=== PATIENT | male | born 1945 | race Caucasian/White ===

== ENCOUNTER 2017-11-05 05:45 | Day surgery (SDC) | payer MEDICARE ==
[~2017-11-05] VITALS: Ht 177.8 cm; Wt 83.0 kg
--- NOTE | ~2017-11-05 | OR ---
[facility] [address], [place] [address] Draft DATE OF OPERATION: 11/05/2017 SURGEON: Jaime Fisher MD PREOPERATIVE DIAGNOSIS: Left inguinal hernia. POSTOPERATIVE DIAGNOSIS: Left direct inguinal hernia. PROCEDURE: Left inguinal hernia repair with implantation of Prolene mesh (underlay technique). ANESTHESIA: General endotracheal; Julianne Gutierrez CRNA and local 0.25% Marcaine with epinephrine. INDICATION: This 72-year-old white man is a patient of Dr. Almanza and known to me from the past having undergone Hill repair number of years ago in the mid . He had an episode of severe left lower abdominal pain in June of this year. He is noted to have worsening constipation. He was found to have a small mass, which was reducible. He has had on occasions issues of left inguinal pain and small mass, which is reducible. Clinical examination confirms a left inguinal hernia. Notably, he underwent right inguinal hernia repair by Dr. Mcneill a number of years ago on the right side. There was no evidence of recurrence there. He is admitted at this time to undergo a left inguinal hernia repair. He understands the risks of bleeding, infection, recurrence, and other unforeseen complications. Implantation of mesh has been recommended and he accepts that. FINDINGS: A large direct defect was noted. There was no sign of indirect defect. Cord structures were normal. An ilioinguinal nerve branch was identified and preserved. Repair included implantation of Prolene mesh in the properitoneal space. Preservation of the ilioinguinal nerve was noted and good repair of the floor was accomplished. DESCRIPTION OF PROCEDURE: The patient was brought to the operating room and given a general anesthetic. Preoperative antibiotic Ancef was given. Sequential compression device stockings applied and heparin subcutaneously administered. The abdomen was clipped and prepared PATIENT NAME: TOMMIE TALBOT OPERATIVE REPORT DATE OF : 41 REPORT #: [id number] PHYSICIAN: JAIME FISHER MD PCP: KATELIN ALMANZA MD REPORT IS CONFIDENTIAL AND NOT TO BE RELEASED WITHOUT AUTHORIZATION [facility] [address], [place] [address] Draft with a chlorhexidine solution and draped sterilely. A small incision was made in the left groin cephalad to the suprapubic tubercle. Dissection carried through the subcutaneous tissue with blunt and electrocautery dissection. The external oblique was incised along its fibers and opened and the underlying cord and ilioinguinal nerve identified. The cord was from the nerve with sharp dissection and the cord encircled with a [place] drain. Close inspection of the cord structures showed no sign of indirect hernia. The direct defect of the floor was noted. Attenuated fibers of the fascia of the transversalis were incised with electrocautery and using blunt dissection, the properitoneal fat . The segment of Prolene mesh was cut to an elliptical configuration and secured in an underlay technique using interrupted 2-0 Prolene sutures. A defect was cut in the graft to accommodate the cord structures. The tails of the graft were secured laterally. The special care taken to avoid encumbrance of the ilioinguinal nerve. A 20 mL of 0.25% Marcaine with epinephrine was injected locally. The cord was replaced in the canal as was the ilioinguinal nerve. The external oblique was reapproximated with running 2-0 Vicryl suture. Juan's layer was reapproximated with interrupted 2-0 Vicryl and the skin was closed with running subcuticular 3-0 Vicryl. Steri-Strips were applied. The patient was ultimately extubated and transported to the recovery room in good condition having suffered no complications. Sponge, needle, and instrument counts reported as correct x3. MD SUZIE Fay/MODL /[id number] cc: Katelin Almanza MD Copies: KATELIN ALMANZA MD ~ PATIENT NAME: TOMMIE TALBOT OPERATIVE REPORT DATE OF : 41 REPORT #: [id number] PHYSICIAN: JAIME FISHER MD PCP: KATELIN ALMANZA MD REPORT IS CONFIDENTIAL AND NOT TO BE RELEASED WITHOUT AUTHORIZATION
[~2017-11-05 05:45] MED LIST: ASPIR 8181 MG PO; ASPIR-LOW81 MG PO; FLOMAX0.4 MG PO; METOPROLOL SUCC50 MG PO; PEPCID20 MG PO; PROBIOTIC1 EAC1 PO; SAW PALMETTO80 MG; VITAMIN C500 M1 PO; VITAMIN D-32000 UNI1 PO; VITAMIN D350000 UNIT PO
--- NOTE | 2017-11-05 09:25 | NUR ---
11/05/17 0925 Antonia Cerrato 0960-PATIENT ARRIVED TO PACU ON 6L MASK O2 SAT 97% PATIENT REACTIVE TO VOICE OPENS EYES DROWSY BACK TO SLEEP. RR EVEN. SR. DRESSING TO LEFT GROIN CDI.
[2017-11-05] MEDS ORDERED: MAPAP325 MG PO (09:37)
[2017-11-05] MEDS ORDERED: OXYCODON-ACETA1 EAC2 PO (09:37)
[2017-11-05] MEDS ORDERED: IBUPROFEN600 MG PO (09:37)
--- NOTE | 2017-11-05 10:46 | NUR ---
LE 0950 PT RETURNS FROM PACU, AWAKE AND TALKING WITH STAFF. VITALS STABLE. PT DENIES PAIN OR NAUSEA. WATER GIVEN. AT BEDSIDE. PT DENIES NEEDS AT THIS TIME. CALL LIGHT IN REACH. LE 1035 IN TO CHECK ON PT, PT AWAKE TALKING WITH . DENIES PAIN AND NAUSEA. CRACKERS AND PUDDING GIVEN. NO FURTHER NEEDS AT THIS TIME. CALL LIGHT IN REACH.
--- NOTE | 2017-11-05 13:16 | NUR ---
CONNECTED WITH PT BEFORE SURGERY. HE IS ALERT, ORIENTED AND SUPPORTED BY HIS . THEY BOTH SEEM PREPARED, HAD FEW QUESTIONS AND REQUESTED PRAYER. WILL FOLLOW A NEEDED
== END 2017-11-05 11:25 | disposition home or self-care (01) ==
LOC: DS 05:45
PROVIDERS: Surgery
PROC: 0YU60JZ Supplement Left Inguinal Region with Synthetic Substitute, Open Approach (ICD-10-PCS; principal; 2017-11-05 06:45)
DX: K40.90 Unilateral inguinal hernia, without obstruction or gangrene, not specified as recurrent (principal); I10 Essential (primary) hypertension; K21.9 Gastro-esophageal reflux disease without esophagitis; R39.12 Poor urinary stream; Z79.82 Long term (current) use of aspirin; Z88.8 Allergy status to other drugs, medicaments and biological substances; Z87.891 Personal history of nicotine dependence; Z98.890 Other specified postprocedural states; Z87.442 Personal history of urinary calculi; Z86.010 Personal history of colon polyps; Z79.899 Other long term (current) drug therapy
CPT/HCPCS: C1781; J0330; J0690; J1100; J1644; J1885; J2405; J2550; J2704; J2765; J3010; J7120

== ENCOUNTER 2020-04-18 12:00 | Day surgery (SDC) | payer MEDICARE ==
[~2020-04-18] VITALS: Ht 177.8 cm; Wt 83.6 kg
--- NOTE | ~2020-04-18 | OR ---
[facility] [address] [place], [place] [address] Draft DATE OF OPERATION: 04/18/2020 SURGEON: Jaime Fisher MD PREOPERATIVE DIAGNOSES: Bowel habit changes including diarrhea alternating with constipation, known history of polyps (2009), normal colonoscopy in 2013. POSTOPERATIVE DIAGNOSES: 1. Sigmoid diverticulosis. 2. Polyps x7 (small). 3. Internal hemorrhoids. PROCEDURE: Total colonoscopy to cecum with cold morcellation polypectomy x7. ANESTHESIA: Intravenous sedation, fentanyl 150 mcg and Versed 7 mg. INDICATIONS: This 75-year-old white man is patient of Dr. Almanza and well known to me from the past. He underwent Hill posterior gastropexy by me in 1996. The patient has also undergone colonoscopy in 2009, where he was found to have a dysplastic polyp of the right colon. Repeat colonoscopy in 2013 showed no sign of problem. He has had bowel habit changes including diarrhea, occasionally constipation, but no rectal bleeding and no sign of fecal occult blood. He is here for colonoscopy. He understands the risks of bleeding, infection, and perforation. Special note, the patient notes stress causes the symptoms worsen quite markedly. FINDINGS: The prep was excellent. Complete colonoscopy was undertaken to the cecum without question. He had seven small polyps distributed throughout the colon, mostly on the right side. There were few diverticula and internal hemorrhoids. DESCRIPTION OF PROCEDURE: The patient was brought to the endoscopy suite and placed in lateral decubitus position, given IV sedation to the point of slurred speech and nystagmus with full cardiopulmonary monitoring. Digital rectal examination was normal. PATIENT NAME: TOMMIE TALBOT OPERATIVE REPORT DATE OF : 41 REPORT #: [id number] PHYSICIAN: JAIME FISHER MD PCP: KATELIN ALMANZA MD REPORT IS CONFIDENTIAL AND NOT TO BE RELEASED WITHOUT AUTHORIZATION [facility] [address] [place], [place] [address] Draft Olympus video colonoscope was passed into the rectum and manipulated throughout the colon, ultimately intubating the cecum. The ileocecal valve and appendiceal orifice were normal. A very good prep was noted. The scope was withdrawn to the ascending colon, there was a small adenomatous appearing polyp, this was excised with cold morcellation technique. The scope was withdrawn to the hepatic flexure, where two such small polyps were noted there, both excised with cold morcellation technique and another nearby in the transverse colon also excised. Further withdrawal of scope showed a similar such polyp in the proximal descending colon, another in the sigmoid and he had another in the rectosigmoid. All were excised with cold morcellation technique. Retroflexed view confirmed internal hemorrhoidal changes. The scope was removed. The patient was taken to the recovery room in good condition. CONCLUDING DIAGNOSIS: Polyps x7, as well as diverticulosis. PLAN: Recommend Citrucel powder one scoop p.o. daily. I would recommend repeat colonoscopy in one year given the number of polyps. He will call if bowel symptoms are not improved with this approach, otherwise to see me back in one year. He will continue to see Dr. Almanza as his primary physician. MD SUZIE Fay/BALA /[id number] cc: Katelin Almanza MD Copies: KATELIN ALMANZA MD ~ PATIENT NAME: TOMMIE TALBOT OPERATIVE REPORT DATE OF : 41 REPORT #: [id number] PHYSICIAN: JAIME FISHER MD PCP: KATELIN ALMANZA MD REPORT IS CONFIDENTIAL AND NOT TO BE RELEASED WITHOUT AUTHORIZATION
[~2020-04-18 12:00] MED LIST changes: +IBUPROFEN600 MG PO; +MAPAP325 MG PO; +OXYCODON-ACETA1 EAC2 PO
--- NOTE | 2020-04-18 14:00 | NUR ---
04/18/20 1400 Katerine Riley 1349- PT ARRIVES TO PACU DROWSY. ABDOMEN WAS SOFT AND ABLE TO PASS GAS. PT RESPONDS TO STAFF QUESTIONS.
--- NOTE | 2020-04-19 12:50 | PATH ---
[facility] [address] [place], [place] [address] Signed SPECIMEN(S): A HEPATIC FLEXURE POLYP SPECIMEN(S): B ASCENDING POLYP SPECIMEN(S): C HEPATIC FLEXURE POLYP SPECIMEN(S): D TRANSVERSE POLYP SPECIMEN(S): E SIGMOID POLYP SPECIMEN(S): F COLON POLYP AT 20 CM SPECIMEN SOURCE: A. HEPATIC FLEXURE POLYP B. ASCENDING POLYP C. HEPATIC FLEXURE POLYP D. TRANSVERSE POLYP E. SIGMOID POLYP F. COLON POLYP AT 20 CM CLINICAL HISTORY: Colonoscopy. Diarrhea. Postop: Diverticulosis, polyps x 6, internal hemorrhoids. MICROSCOPIC DESCRIPTION: Histologic sections of all submitted blocks are examined by light microscopy. These findings, together with the gross examination, support the pathologic diagnosis. FINAL PATHOLOGIC DIAGNOSIS: A. Hepatic flexure polyp: - Inflammatory polyp. - Negative for dysplasia. B. Ascending polyp: - Tubular adenoma (three fragments). C. Hepatic flexure polyp: - Tubular adenoma (one fragment). D. Transverse polyp: - Polypoid colonic mucosa, negative for dysplasia. E. Sigmoid polyp: - Hyperplastic polyp (three fragments). F. Colon polyp at 20 cm: - Tubular adenoma (one fragment). JVR:[facility]:C2NR GROSS DESCRIPTION: Six specimens are received in six containers, labeled "DA." PATIENT NAME: TOMMIE TALBOT PATHOLOGY DATE OF : 41 REPORT #: [id number] PHYSICIAN: RONALD PATHOLOGY PCP: KATELIN ALMANZA MD REPORT IS CONFIDENTIAL AND NOT TO BE RELEASED WITHOUT AUTHORIZATION [facility] [address] [place], [place] [address] Signed A. The specimen, labeled "DA, 1," and designated on the requisition "hepatic flexure polyp," is received in formalin and consists of one de leon soft tissue fragment that measures 0.3 cm in greatest dimension. The specimen is entirely submitted in cassette (A1). B. The specimen, labeled "DA, 2," and designated on the requisition "ascending colon polyp," is received in formalin and consists of five de leon soft tissue fragments that measure 0.2-0.3 cm in greatest dimension. The specimen is entirely submitted in cassette (B1). C. The specimen, labeled "DA, 3," and designated on the requisition "second hepatic flexure polyp," is received in formalin and consists of one de leon soft tissue fragment that measures 0.3 cm in greatest dimension. The specimen is entirely submitted in cassette (C1). D. The specimen, labeled "DA, 4," and designated on the requisition "transverse colon polyp," is received in formalin and consists of one de leon soft tissue fragment that measures 0.3 cm in greatest dimension. The specimen is entirely submitted in cassette (D1). E. The specimen, labeled "DA, 5," and designated on the requisition "sigmoid colon polyp," is received in formalin and consists of three de leon soft tissue fragments that measure 0.2-0.3 cm in greatest dimension. The specimen is entirely submitted in cassette (E1). F. The specimen, labeled "DA, 6," and designated on the requisition "colon polyp at 20 cm," is received in formalin and consists of one de leon soft tissue fragment that measures 0.3 cm in greatest dimension. The specimen is entirely submitted in cassette (F1). AT (under the direct supervision of a pathologist) The Gross Description was prepared using a voice recognition system. The report was reviewed for accuracy; however, sound-alike word errors, addition and/or deletions may occur. If there is any question about this report, please contact Client Services. PERFORMING LABORATORY: The technical component was performed by [facility], [address] [place] [id number] (Course Instructor: Ivonne Kaufman MD; CLIA# [id number]). Professional interpretation was performed by [facility] [address] (Course Instructor: Samuel Lawler M.D.). Diagnostician: Samuel Lawler MD Pathologist Electronically Signed 04/19/2020 PATIENT NAME: TOMMIE TALBOT PATHOLOGY DATE OF : 41 REPORT #: [id number] PHYSICIAN: RONALD PATHOLOGY PCP: KATELIN ALMANZA MD REPORT IS CONFIDENTIAL AND NOT TO BE RELEASED WITHOUT AUTHORIZATION [facility] [address] [place] [id number] Signed Copies: ~ PATIENT NAME: TOMMIE TALBOT PATHOLOGY DATE OF : 41 REPORT #: [id number] PHYSICIAN: RONALD PATHOLOGY PCP: KATELIN ALMANZA MD REPORT IS CONFIDENTIAL AND NOT TO BE RELEASED WITHOUT AUTHORIZATION
== END 2020-04-18 14:34 | disposition home or self-care (01) ==
LOC: OPS 12:00 → DS 12:03 → OPS 14:00 → DS 14:00 → OPS 14:34
PROVIDERS: ATTEND Surgery
PROC: 0DBL8ZX Excision of Transverse Colon, Via Natural or Artificial Opening Endoscopic, Diagnostic (ICD-10-PCS; 2020-04-18)
PROC: 0DBN8ZX Excision of Sigmoid Colon, Via Natural or Artificial Opening Endoscopic, Diagnostic (ICD-10-PCS; 2020-04-18)
PROC: 0DBM8ZX Excision of Descending Colon, Via Natural or Artificial Opening Endoscopic, Diagnostic (ICD-10-PCS; 2020-04-18)
PROC: 0DBK8ZX Excision of Ascending Colon, Via Natural or Artificial Opening Endoscopic, Diagnostic (ICD-10-PCS; principal; 2020-04-18 14:00)
DX: K51.40 Inflammatory polyps of colon without complications (principal); D12.2 Benign neoplasm of ascending colon; D12.3 Benign neoplasm of transverse colon; K63.5 Polyp of colon; K64.8 Other hemorrhoids; K57.30 Diverticulosis of large intestine without perforation or abscess without bleeding; I10 Essential (primary) hypertension; K21.9 Gastro-esophageal reflux disease without esophagitis; Z79.899 Other long term (current) drug therapy; Z88.8 Allergy status to other drugs, medicaments and biological substances; Z79.82 Long term (current) use of aspirin; Z87.891 Personal history of nicotine dependence; Z90.49 Acquired absence of other specified parts of digestive tract; Z86.010 Personal history of colon polyps
CPT/HCPCS: 99153; G0500; J2250; J2405; J3010; J7121

== ENCOUNTER 2021-09-07 06:58 | Day surgery (SDC) | payer MEDICARE ==
[~2021-09-07] VITALS: Ht 177.8 cm; Wt 84.1 kg
--- NOTE | ~2021-09-07 | OR ---
[facility] [address] [place], [place] [address] Draft DATE OF OPERATION: 09/07/2021 SURGEON: Jaime Fisher MD PREOPERATIVE DIAGNOSIS: History of polyps x7 (three of which were tubular adenomas) March 2020. POSTOPERATIVE DIAGNOSES: 1. No evidence of recurrent or new polyps. 2. Minimal diverticular changes and internal hemorrhoids. PROCEDURE: Total colonoscopy to cecum. ANESTHESIA: Intravenous sedation; propofol infusion Salvador Malone CRNA INDICATIONS: This 76-year-old white man is a patient Dr. Almanza. He is known to me from the past having undergone Hill posterior gastropexy in 1995 for reflux disease. He underwent colonoscopy by me in March of 2020, at which time he was found to have seven polyps, three of which were tubular adenomas. Repeat colonoscopy was recommended on that basis. He is symptom free and has no family history of colon cancer that he is aware of. He is admitted at this time to undergo colonoscopy. He understands the risks of bleeding, infection, and perforation. FINDINGS: The prep was excellent. Complete colonoscopy was undertaken to the cecum without question. He had no evidence of recurrent or new polyps. There were few scattered diverticula and internal hemorrhoids. DESCRIPTION OF PROCEDURE: The patient was brought to the endoscopy suite and placed in lateral decubitus position, given intravenous sedation a point of slurred speech and nystagmus with full cardiopulmonary monitoring by the heading machine operator with propofol infusional technique. Digital rectal examination was normal. Olympus video colonoscope was passed in the rectum and manipulated throughout the colon ultimately intubating the cecum itself. A notably good prep was noted. The scope was withdrawn from that point. Examination throughout showed no signs of polyps, only a few scattered diverticula of the sigmoid. Retroflexed view of the rectum was normal as well, which showed some internal PATIENT NAME: TOMMIE TALBOT OPERATIVE REPORT DATE OF : 41 REPORT #: [id number] PHYSICIAN: JAIME FISHER MD PCP: KATELIN ALMANZA MD REPORT IS CONFIDENTIAL AND NOT TO BE RELEASED WITHOUT AUTHORIZATION [facility] [address] [place] [address] Draft hemorrhoidal change, but no active problem. The scope was removed and the patient was taken to the recovery room in good condition. CONCLUSION DIAGNOSIS: No evidence of polyps. PLAN: Recommend repeat colonoscopy in 5 to 7 years if clinically appropriate at that point in his early 80s. He will return to the ongoing care of Dr. Almanza. MD SUZIE Fay/RADHAL /[id number] cc: Katelin Almanza MD Copies: KATELIN ALMANZA MD ~ PATIENT NAME: TOMMIE TALBOT GENE OPERATIVE REPORT DATE OF : 41 REPORT #: [id number] PHYSICIAN: JAIME FISHER MD PCP: KATELIN ALMANZA MD REPORT IS CONFIDENTIAL AND NOT TO BE RELEASED WITHOUT AUTHORIZATION
[~2021-09-07 06:58] MED LIST changes: +CITRUCEL POWDE454 GM; +LIPITOR10 MG; +OMEPRAZOLE20 M1 PO; +PROPRANOLOL HCL20 MG PO
--- NOTE | 2021-09-07 08:35 | NUR ---
09/07/21 0835 Ira Armstrong 0829- PT ARRIVES TO PACU NONAROUSABLE TO NOXIOUS STIMULI. RESP EVEN AND UNLABORED. OXYGEN SAT HIGH 90'S TO 100% ON 6L VIA MASK.
== END 2021-09-07 09:09 | disposition home or self-care (01) ==
LOC: OPS 06:58 → DS 07:00 → OPS 08:15 → DS 11:00 → OPS 11:00
PROVIDERS: ATTEND Surgery
PROC: 0DJD8ZZ Inspection of Lower Intestinal Tract, Via Natural or Artificial Opening Endoscopic (ICD-10-PCS; principal; 2021-09-07 08:15)
DX: Z12.11 Encounter for screening for malignant neoplasm of colon (principal); K57.30 Diverticulosis of large intestine without perforation or abscess without bleeding; K64.8 Other hemorrhoids; I10 Essential (primary) hypertension; K21.9 Gastro-esophageal reflux disease without esophagitis; Z88.8 Allergy status to other drugs, medicaments and biological substances; Z87.19 Personal history of other diseases of the digestive system
CPT/HCPCS: J2704